=== PATIENT | female | born 1965 | race Caucasian/White ===

== ENCOUNTER 2017-06-22 19:43 | Emergency (ER) | payer OTHER ==
[~2017-06-22] VITALS: Ht 167.6 cm; Wt 89.5 kg
[~2017-06-22 19:43] MED LIST: CARDIZEM CD,CA180 MG PO; COLACE100 MG PO; ELIQUIS5 MG PO; ENDOCET 5-3251 EACH PO; FLORASTOR250 MG PO; LEVO-T75 MCG PO; NORVASC5 MG PO; ZESTRIL10 MG PO
[2017-06-22 20:21] LABS: HEMATOCRIT 41.7 % (36.0-46.0); HEMOGLOBIN 15.1 G/DL (11.9-15.5); MCH 31.5 PG (29.0-34.0); MCHC 36.2 G/DL (30.0-36.0); MCV 86.9 FL (83-99); PLATELET COUNT 174 K/uL (156-360); RBC DIS.WIDTH-CV 12.4 % (11.8-14.6); RBC DIS.WIDTH-SD 39.4 % (39-53); WHITE BLOOD COUNT 9.3 K/uL (4.1-10.2)
[2017-06-22 20:31] LABS: ALBUMIN 4.3 g/dL (3.2-4.8)
[2017-06-22 20:32] LABS: CHLORIDE 107 mEq/L (99-109); POTASSIUM 3.5 mEq/L (3.7-5.4); SODIUM 142 mEq/L (136-147)
[2017-06-22 20:34] LABS: GLUCOSE 99 mg/dL (70-99)
[2017-06-22 20:36] LABS: TOTAL BILIRUBIN 0.8 mg/dL (0.0-1.0)
[2017-06-22 20:37] LABS: ALKALINE PHOSPHATASE 61 IU/L (3-129)
[2017-06-22 20:38] LABS: CREATININE 0.8 mg/dL (0.6-1.3); GFR ESTIMATE (CALCULATED) > 59 mL/min/
[2017-06-22 20:39] LABS: AST (GOT) 14 IU/L (2-34); UREA NITROGEN (BUN) 19 mg/dL (9-23)
[2017-06-22 20:40] LABS: ALT (GPT) 19 IU/L (3-49)
[2017-06-22 20:45] LABS: TROP-I INTERPRETATION NEGATIVE; TROPONIN-I < 0.01 ng/mL (0.0-0.30)
[2017-06-22 22:14] VITALS: BP 122/91
== END 2017-06-22 22:15 | disposition home or self-care (01) ==
LOC: EME 19:43
PROVIDERS: Emergency Medicine Emergency Medical Services
DX: I48.91 Unspecified atrial fibrillation (principal); R00.2 Palpitations; R06.02 Shortness of breath; R51 Headache; I10 Essential (primary) hypertension
CPT/HCPCS: 71045; 80053; 83880; 84484; 85027; 93005; 99281; 99285; J7040